=== PATIENT | male | born 1990 | race Caucasian/White ===

== ENCOUNTER 2024-04-26 21:10 | Emergency (ER) | payer BC, SELFPAY ==
[2024-04-26 21:13] VITALS: BP 154/89
[2024-04-26 21:36] LABS: % Basophils 0.3 % (0-2); % Eosinophils 0.3 % (0-6); % Immature Granulocytes 0.2 % (0-0.5); % Lymphocytes 16.8 % (20.5-51.1); % Monocytes 11.5 % (1.7-9.3); % Neutrophils 70.9 % (42.2-75.2); Absolute Monocytes 0.7 10^3/uL (0.1-0.6); Absolute Neutrophils 4.1 10^3/uL (1.4-6.5); Hematocrit 40.5 % (39.0-52.0); Hemoglobin 14.5 g/dL (13.0-18.0); Mean Corp Hgb Conc. 35.8 g/dL (33.0-37.0); Mean Corpuscular Hgb 31.5 pg (27.0-31.0); Mean Platelet Volume 8.5 fL (7.4-10.4); Nucleated Red Blood Cells % 0 % (-); Platelet Count 193 10^3/uL (130-400); Red Cell Dist. Width 11.9 % (11.5-14.5); White Blood Cell Count 5.8 10^3/uL (4.8-10.8)
[2024-04-26 21:54] LABS: ALT (SGPT) 25 U/L (0-50); AST (SGOT) 33 U/L (17-59); Albumin 4.1 g/dl (3.5-5.0); Alkaline Phosphatase 84 U/L (38-126); Blood Urea Nitrogen 18 mg/dl (9-20); Calcium 9.5 mg/dl (8.4-10.2); Carbon Dioxide 27 mmol/L (22-30); Chloride 100 mmol/L (98-107); Glucose 149 mg/dl (70-99); Lipase 68 U/L (23-300); Potassium 3.8 mmol/L (3.5-5.1); Sodium 136 mmol/L (135-145); Total Bilirubin 0.6 mg/dl (0.2-1.3); Total Protein 6.5 g/dl (6.3-8.2); eGFR > 60.00
--- NOTE | 2024-04-26 23:29 | ED.GENMED ---
History of Present Illness
General
Chief Complaint: Abdominal Pain
Time Seen by Provider: 04/26/24 23:28
History of Present Illness
History of Present Illness:
TIME OF INITIAL ENCOUNTER: 11:30 PM
HPI: Patient reports central/epigastric pain for the past 24 hours. At the onset it woke him from sleep. He has had poor p.o. intake today. The pain remains more so in the upper abdomen. He has not had pain like this in the past. He has never
had any abdominal surgeries. No fevers. He rarely drinks alcohol.
EXAM:
GENERAL: Well appearing in no distress
HEENT: Moist oral mucosa
CARDIOVASCULAR: No murmurs, normal heart rate, regular rhythm, No chest wall tenderness
PULMONARY: No respiratory distress, breath sounds are clear and equal
ABDOMEN: Soft with no peritoneal signs, no tenderness other than minimal in the epigastric region and minimal in the right lower quadrant, thin abdomen
NEUROLOGIC: Excellent strength all extremities, no coordination deficits
PSYCHIATRIC: Appropriate mental status, normal insight and judgement
EXTREMITIES: Nontender, no edema, moves all extremities equally
SKIN: Malar facial rash
NUMBER AND COMPLEXITY OF PROBLEMS ADDRESSED AT THE ENCOUNTER
� Chronic conditions affecting care: Denies any past medical history
� Acute Exacerbation and/or Progression of Chronic Illness: This is an acute problem
� Differential Diagnosis includes: Constipation, GERD, appendicitis, epiploic appendagitis, mesenteric adenitis, pancreatitis
AMOUNT AND/OR COMPLEXITY OF DATA TO BE REVIEWED AND ANALYZED
� I performed an independent evaluation of and my interpretation is:
EKG:
CT: CT imaging unremarkable�see below
X-rays:
Laboratory Studies: White count normal, hemoglobin normal, chemistries including lipase and LFTs normal
Other:
� Review of other/old records: No old records available for review in [facility]
� Clinical information was obtained by an independent historian: I spoke to father at bedside
� Prescriptions/Medications Considered but not given:
� Further testing considered but not performed:
RISK OF COMPLICATIONS AND/OR MORBIDITY OR MORTALITY OF PATIENT MANAGEMENT
� Social determinants of health affecting care: Lives at home
� Discussion with other providers:
� Escalation of care including admission/observation vs risk of discharge considered: The patient has ongoing pain. Despite normal labs, will obtain CT imaging with oral and IV contrast given his thin body habitus.
ANY OTHER UPDATES:
2:15 AM: I reassessed patient. Although CT imaging shows a markedly distended bladder, the patient did void just after he returned from CT. Imaging is unremarkable with no definite acute process.
Phy Exam
Physical Exam
Physical Exam:
See HPI
Course
Orders/Labs/Results
Orders:
Orders
04/26/24 21:20
Complete Blood Count/With Diff Urgent
Comprehensive Metabolic Panel Urgent
Lipase Urgent
04/26/24 23:35
0.9% Sodium Chloride 1000 ml [Nss] 1,000 ml IV BOLUS
Iohexol [Omnipaque] See Protocol PO NOW STA
04/26/24 23:40
Famotidine [Pepcid] 20 mg IV NOW STA
04/27/24 01:30
CT Abd/pel W Iv And Oral Contr Urgent
Reason For Exam: epigastric pain; RLQ tender mild
04/27/24 02:24
Ketorolac [Toradol] 15 mg IV NOW STA
Abnormal Lab Results
04/26/24
21:20
RBC 4.60 L 10^6/uL
(4.70-6.10)
MCH 31.5 H pg
(27.0-31.0)
Absolute Lymphs (auto) 1.0 L 10^3/uL
(1.2-3.4)
Absolute Monos (auto) 0.7 H 10^3/uL
(0.1-0.6)
Lymphocytes % 16.8 L %
(20.5-51.1)
Monocytes % 11.5 H %
(1.7-9.3)
Glucose 149 H mg/dl
(70-99)
04/26/24 21:20
04/26/24 21:20
Vital Signs
Initial and Last Documented VS:
Initial Vital Signs
Temp Pulse Resp BP Pulse Ox
36.6 C 85 20 154/89 98
04/26/24 21:13 04/26/24 21:13 04/26/24 21:13 04/26/24 21:13 04/26/24 21:13
Last Documented Vital Signs
Temp Pulse Resp BP Pulse Ox
36.6 C 53 18 120/72 99
04/26/24 21:13 04/27/24 02:00 04/27/24 02:00 04/27/24 02:00 04/27/24 02:00
*Critical Care Note
Total Time (30-74mins, 75-104mins- exclusive of procedures): Not Applicable
ED Attending Note
-
Portions of this chart may have been created with voice recognition software.� Occasional wrong word or��sound alike� substitutions may have occurred due to the inherent limitations of voice recognition software.
Discharge Plan
Departure
Patient Disposition: Home (Routine Discharge)
Date of Disposition: 04/27/24
Time of Disposition: 02:21
Patient with high blood pressure during this ER visit?: Yes
Discharge Problem:
Abdominal pain
Instructions: Abdominal Pain
Referrals:
Dejon Ferrara MD [Family Provider] -
Activity Restrictions/Additional Instructions:
The cause of your symptoms is unclear. Blood work was normal. Your CAT scan shows no acute abnormality. We gave you a dose of Toradol and a dose of Pepcid earlier. You could consider taking a 2-week course of [id number] omeprazole in case
this could be stomach acid related. Return here if worse or other concerns.
Interventions
Interventions:
*Risk Screen - Suicide Last Done: 04/27/24 02:40
*General Assessment Last Done: 04/26/24 21:13
*Neglect/Abuse Screening Last Done: 04/27/24 02:40
ED- Fall Risk Assessment Last Done: 04/27/24 02:44
*ED COVID-19 Vaccine History Last Done: 04/27/24 02:40
*Nursing Disposition Last Done: 04/27/24 02:40
RX-[id number]-Ftrtowkdoh Assessment Last Done: 04/27/24 02:44
Discharge Date and Time
Discharge Date/Time: 04/27/24 02:40
Print Language: MALAY
[2024-04-26 23:44] VITALS: BMI 18.2
[2024-04-26] MEDS: PEPCID 20 MG IV (23:50)
[2024-04-26] MEDS: NSS 1000 IV (23:50)
[2024-04-26] MEDS: OMNIPAQUE 50 ML PO (23:50)
[2024-04-27 02:00] VITALS: BP 120/72
[2024-04-27] MEDS: TORADOL 15 MG IV (02:36)
== END 2024-04-27 02:40 | disposition home or self-care (01) ==
LOC: EMR 21:10
PROVIDERS: Emergency Medicine; EMERGENCY PHYSICIAN Emergency Medicine; FAMILY PHYSICIAN Student in an Organized Health Care Education/Training Program
DX: R10.9 Unspecified abdominal pain (principal); R03.0 Elevated blood-pressure reading, without diagnosis of hypertension
CPT/HCPCS: 99285; 96374; 96375; 96361; 74177; 80053; 83690; 85025; Q9967